=== PATIENT | female | born 1985 | race Caucasian/White ===

== ENCOUNTER 2017-06-27 10:47 | Emergency (ER) | payer OTHER ==
[~2017-06-27] VITALS: Ht 162.6 cm; Wt 61.2 kg
[~2017-06-27 10:47] MED LIST: CIPR500 PO; Flonase 0.05% N16 GM; HYDACE5 PO; INCARCERATION; LEVFLO500 PO; METR500 PO; ONDA4 PO; PENVK250 PO; PHENA200 PO; PYRA250T PO; RXHYDACE PO; RXPENVK250 PO; SULTRIDS PO
[2017-06-27] MEDS ORDERED: Diflucan150 MG PO (11:11)
== END 2017-06-27 11:14 | disposition home or self-care (01) ==
LOC: ER 10:47
DX: B37.9 Candidiasis, unspecified (principal); L30.4 Erythema intertrigo; F17.210 Nicotine dependence, cigarettes, uncomplicated
CPT/HCPCS: 99282

== ENCOUNTER 2017-10-26 14:53 | Emergency (ER) | payer OTHER ==
[~2017-10-26] VITALS: Ht 165.1 cm; Wt 60.8 kg
[~2017-10-26 14:53] MED LIST changes: +Diflucan150 MG PO
== END 2017-10-26 15:26 | disposition home or self-care (01) ==
LOC: ER 14:53
DX: Z32.02 Encounter for pregnancy test, result negative (principal); Z87.891 Personal history of nicotine dependence
CPT/HCPCS: 81000; 81025; 99282

== ENCOUNTER 2018-02-24 11:49 | Emergency (ER) | payer OTHER ==
[~2018-02-24] VITALS: Ht 165.1 cm; Wt 61.2 kg
[~2018-02-24 11:49] MED LIST changes: +ALBU90OI6 INH; +BENZ100A PO; +Prednisone20 MG PO
[2018-02-24] MEDS ORDERED: RINGWORM14.2 GM TOP (12:11)
[2018-02-25] MEDS ORDERED: CLOTRIMAZOLE TOP (14:25)
[2018-02-25] MEDS ORDERED: Lice Killing240 ML TOP (14:25)
== END 2018-02-24 12:39 | disposition home or self-care (01) ==
LOC: ER 11:49
DX: B35.4 Tinea corporis (principal); F17.210 Nicotine dependence, cigarettes, uncomplicated
CPT/HCPCS: 81025; 99283

== ENCOUNTER 2018-02-25 14:14 | Emergency (ER) | payer OTHER ==
[~2018-02-25] VITALS: Ht 165.1 cm; Wt 61.2 kg
[~2018-02-25 14:14] MED LIST changes: +RINGWORM14.2 GM TOP
[2018-02-25] MEDS ORDERED: Lice Killing240 ML TOP (14:25)
[2018-02-25] MEDS ORDERED: CLOTRIMAZOLE TOP (14:25)
== END 2018-02-25 14:26 | disposition home or self-care (01) ==
LOC: ER 14:14
DX: Z76.0 Encounter for issue of repeat prescription (principal); F17.210 Nicotine dependence, cigarettes, uncomplicated
CPT/HCPCS: 99281

== ENCOUNTER 2018-03-12 08:34 | Emergency (ER) | payer OTHER ==
[~2018-03-12] VITALS: Ht 165.1 cm; Wt 61.2 kg
[~2018-03-12 08:34] MED LIST changes: +CLOTRIMAZOLE TOP; +Lice Killing240 ML TOP
== END 2018-03-12 09:10 | disposition home or self-care (01) ==
LOC: ER 08:34
DX: B35.9 Dermatophytosis, unspecified (principal); B35.4 Tinea corporis; Z76.0 Encounter for issue of repeat prescription; Z87.891 Personal history of nicotine dependence
CPT/HCPCS: 99281

== ENCOUNTER 2018-09-30 07:26 | Emergency (ER) | payer OTHER ==
[~2018-09-30] VITALS: Ht 152.4 cm; Wt 61.2 kg
[2018-09-30] MEDS ORDERED: Triamcinolone A15 G3 TOP (09:22)
== END 2018-09-30 09:28 | disposition home or self-care (01) ==
LOC: ER 07:26
DX: L23.7 Allergic contact dermatitis due to plants, except food (principal); Z87.891 Personal history of nicotine dependence
CPT/HCPCS: 99282

== ENCOUNTER 2019-06-20 06:56 | Emergency (ER) | payer OTHER ==
[~2019-06-20] VITALS: Ht 162.6 cm; Wt 49.9 kg
[~2019-06-20 06:56] MED LIST changes: +Triamcinolone A15 G3 TOP
== END 2019-06-20 07:30 | disposition home or self-care (01) ==
LOC: ER 06:56
DX: R21 Rash and other nonspecific skin eruption (principal); F15.10 Other stimulant abuse, uncomplicated; F17.210 Nicotine dependence, cigarettes, uncomplicated
CPT/HCPCS: 99282

== ENCOUNTER 2019-06-22 14:14 | Emergency (ER) | payer OTHER ==
[~2019-06-22] VITALS: Ht 165.1 cm; Wt 59.0 kg
[2019-06-22] MEDS ORDERED: EMVERM100 MG PO (15:01)
== END 2019-06-22 15:01 | disposition home or self-care (01) ==
LOC: ER 14:14
DX: B80 Enterobiasis (principal); F17.210 Nicotine dependence, cigarettes, uncomplicated
CPT/HCPCS: 99282

== ENCOUNTER 2019-06-27 21:43 | Emergency (ER) | payer OTHER ==
[~2019-06-27] VITALS: Ht 167.6 cm; Wt 63.5 kg
[~2019-06-27 21:43] MED LIST changes: +EMVERM100 MG PO
[2019-06-27] MEDS ORDERED: Bactrim Ds Tab1 EACH PO (22:58)
[2019-06-27] MEDS ORDERED: CEPH500 PO (22:58)
== END 2019-06-27 23:22 | disposition home or self-care (01) ==
LOC: ER 21:43
DX: L03.113 Cellulitis of right upper limb (principal); F15.10 Other stimulant abuse, uncomplicated; F17.210 Nicotine dependence, cigarettes, uncomplicated
CPT/HCPCS: 73080; 96374; 99283-25; A9270-GY; J0696

== ENCOUNTER 2021-01-04 10:06 | Emergency (ER) | payer OTHER ==
[~2021-01-04] VITALS: Ht 170.2 cm; Wt 63.5 kg
[~2021-01-04 10:06] MED LIST changes: +Bactrim Ds Tab1 EACH PO; +CEPH500 PO
[2021-01-04] MEDS ORDERED: Monodox100 MG PO (11:50)
== END 2021-01-04 11:55 | disposition home or self-care (01) ==
LOC: ER 10:06
DX: L03.113 Cellulitis of right upper limb (principal); F17.210 Nicotine dependence, cigarettes, uncomplicated
CPT/HCPCS: 99282

== ENCOUNTER 2021-01-19 06:24 | Emergency (ER) | payer OTHER ==
[~2021-01-19] VITALS: Ht 167.6 cm; Wt 61.2 kg
[~2021-01-19 06:24] MED LIST changes: +Monodox100 MG PO
[2021-01-19] MEDS ORDERED: Monodox100 MG PO ×2 (07:56→08:04)
== END 2021-01-19 08:05 | disposition home or self-care (01) ==
LOC: ER 06:24
DX: L03.113 Cellulitis of right upper limb (principal); F17.210 Nicotine dependence, cigarettes, uncomplicated
CPT/HCPCS: 99282

== ENCOUNTER 2021-02-14 05:44 | Emergency (ER) | payer OTHER ==
[~2021-02-14] VITALS: Ht 165.1 cm; Wt 61.2 kg
[2021-02-14 06:01] LABS: Source, Urine Clean Catch
[2021-02-14 06:09] LABS: Appearance, Urine Cloudy (Clear); Bilirubin, Urine Neg (Neg); Blood, Urine 5+ (Neg); Color, Urine Yellow (P-Yellow); Glucose Qualitative, Urine Neg (Neg); Ketones, Urine 1+ (Neg); Leukocyte Esterase, Urine 3+ (Neg); Nitrite, Urine Pos (Neg); Protein, Urine 3+ (Neg); Specific Gravity, Urine 1.025 (1.003-1.022); Urobilinogen, Urine 1+ (Normal)
[2021-02-14 06:23] LABS: White Blood Cells, Urine TNTC /hpf (0-5)
[2021-02-14 06:24] LABS: Red Blood Cells, Urine 25-50 /hpf (0-2)
[2021-02-14 06:25] LABS: Bacteria Many /hpf; Squamous Epithelial Cells Mod /hpf (Few)
[2021-02-14] MEDS ORDERED: NITR100CA PO (06:38)
== END 2021-02-14 07:30 | disposition home or self-care (01) ==
LOC: ER 05:44
PROVIDERS: Emergency Medicine
DX: N39.0 Urinary tract infection, site not specified (principal); R30.0 Dysuria; F17.210 Nicotine dependence, cigarettes, uncomplicated
CPT/HCPCS: 81001; 81025; 87077; 87086; 87186

== ENCOUNTER 2021-03-05 12:29 | Emergency (ER) | payer OTHER ==
[~2021-03-05] VITALS: Ht 165.1 cm; Wt 56.7 kg
[~2021-03-05 12:29] MED LIST changes: +NITR100CA PO
[2021-03-05] MEDS ORDERED: CEPH500 PO (13:09)
== END 2021-03-05 13:10 | disposition home or self-care (01) ==
LOC: ER 12:29
DX: L03.113 Cellulitis of right upper limb (principal); F17.210 Nicotine dependence, cigarettes, uncomplicated
CPT/HCPCS: 99281

== ENCOUNTER 2021-03-16 12:27 | Emergency (ER) | payer OTHER ==
[~2021-03-16] VITALS: Ht 167.6 cm; Wt 61.2 kg
== END 2021-03-16 13:22 | disposition home or self-care (01) ==
LOC: ER 12:27
DX: B37.9 Candidiasis, unspecified (principal); R39.9 Unspecified symptoms and signs involving the genitourinary system; F17.210 Nicotine dependence, cigarettes, uncomplicated; Z79.899 Other long term (current) drug therapy
CPT/HCPCS: 99282; A9270

== ENCOUNTER 2022-05-19 11:14 | Emergency (ER) | payer OTHER ==
[~2022-05-19] VITALS: Ht 165.1 cm; Wt 63.5 kg
[~2022-05-19 11:14] MED LIST changes: +Vibramycin100 MG PO
== END 2022-05-19 11:44 | disposition home or self-care (01) ==
LOC: ER 11:14
DX: Z32.02 Encounter for pregnancy test, result negative (principal); F17.210 Nicotine dependence, cigarettes, uncomplicated
CPT/HCPCS: 99281

== ENCOUNTER 2022-11-04 11:50 | Emergency (ER) | payer OTHER ==
[~2022-11-04] VITALS: Ht 167.6 cm; Wt 65.8 kg
[2022-11-04 12:30] VITALS: BP 128/65
== END 2022-11-04 12:54 | disposition home or self-care (01) ==
LOC: ER 11:50
DX: S09.90XD Unspecified injury of head, subsequent encounter (principal); W19.XXXD Unspecified fall, subsequent encounter; Z23 Encounter for immunization; Z87.891 Personal history of nicotine dependence
CPT/HCPCS: 90471; 90715; 99281-25

== ENCOUNTER → 2023-07-27 | Outpatient (CLI) | payer OTHER ==
[2023-08-07 05:53] LABS: HPV HIGH RISK BY TMA Not Detected; HPV SOURCE Vaginal
== END ==
LOC: LAB 17:38 → LAB SHORT 17:38
PROVIDERS: Family Medicine
DX: Z00.00 Encounter for general adult medical examination without abnormal findings (principal)
CPT/HCPCS: 87624; G0123

== ENCOUNTER → 2024-05-15 | Outpatient (CLI) | payer OTHER ==
[2024-05-15 15:49] LABS: BASOPHILS ABSOLUTE AUTO 0.03 K/mm3 (0.00-0.23); BASOPHILS PERCENT AUTO 1 % (0-2); EOSINOPHILS ABSOLUTE AUTO 0.07 K/mm3 (0.00-0.68); EOSINOPHILS PERCENT AUTO 1 % (0-6); Hematocrit 36.8 % (33.0-51.0); Hemoglobin 12.6 g/dL (11.5-16.0); IMMATURE GRAN ABSOLUTE AUTO 0.03 K/mm3 (0.00-0.10); IMMATURE GRAN PERCENT AUTO 1 % (0-1); LYMPHOCYTES ABSOLUTE AUTO 1.97 K/mm3 (0.84-5.20); LYMPHOCYTES PERCENT AUTO 32 % (21-46); MONOCYTES ABSOLUTE AUTO 0.45 K/mm3 (0.16-1.47); MONOCYTES PERCENT AUTO 7 % (4-13); Mean Corpuscular HGB 30.5 pg (26.0-34.0); Mean Corpuscular HGB Conc 34.2 g/dL (31.5-36.5); Mean Corpuscular Volume 89 fL (80-100); Mean Platelet Volume 10.7 fL (9.1-12.4); NEUTROPHILS ABSOLUTE AUTO 3.53 K/mm3 (1.96-9.15); NEUTROPHILS PERCENT AUTO 58 % (41-73); Platelet Count 201 K/mm3 (150-400); RDW Standard Deviation 42.4 fL (35.1-46.3); Red Blood Cell Count 4.13 M/mm3 (3.80-5.20); White Blood Cell Count 6.08 K/mm3 (4.00-11.30)
[2024-05-15 15:52] LABS: Albumin, Blood 3.7 g/dL (3.4-5.0); Albumin/Globulin Ratio 0.9 (0.8-1.8); Bilirubin, Total 0.3 mg/dL (0.1-1.0); Bun/Creatinine Ratio 22.1 (12.0-20.0); Calcium, Blood 9.4 mg/dL (8.5-10.1); Creatinine, Blood 0.77 mg/dL (0.40-1.00); Globulin, Blood 3.9 g/dL (2.2-4.0); Potassium, Blood 3.9 mmol/L (3.5-5.5); Total Protein, Blood 7.6 g/dL (6.4-8.2)
== END ==
LOC: LAB 15:34 → LAB SHORT 15:34
DX: R10.9 Unspecified abdominal pain (principal)
CPT/HCPCS: 80053; 85025

== ENCOUNTER → 2024-08-06 | Outpatient (CLI) | payer OTHER | LOC: LAB 11:28 → LAB SHORT 11:28 | DX: N39.0 Urinary tract infection, site not specified (principal); R31.9 Hematuria, unspecified | CPT/HCPCS: 87077; 87086; 87186 ==

== ENCOUNTER → 2024-11-02 | Outpatient (CLI) | payer OTHER | LOC: LAB 17:38 → LAB SHORT 17:38 | DX: R30.0 Dysuria (principal) | CPT/HCPCS: 87086 ==

== ENCOUNTER → 2025-01-01 | Outpatient (CLI) | payer OTHER | END | disposition home or self-care (01) | LOC: LAB 10:10 → LAB SHORT 10:10 | DX: N30.01 Acute cystitis with hematuria (principal) | CPT/HCPCS: 87077; 87086; 87186 ==